=== PATIENT | male | born 1975 | race Caucasian/White ===

== ENCOUNTER 2018-08-24 02:55 | Emergency (ER) | payer MEDICAID ==
[~2018-08-24] VITALS: Wt 81.9 kg
[2018-08-24 02:58] VITALS: BP 195/87; PULSE 101; RESP 18
[2018-08-24] MEDS ORDERED: CLOT30CR24 TOP (03:37)
[2018-08-24] MEDS ORDERED: HC30CR25 TOP (03:55)
--- NOTE | 2018-08-24 04:02 | ERD ---
ER Documentation Chief Complaint Chief Complaint BILAT FOOT PAIN/ "BURNING" X'S 2 DAYS HPI 43-year-old male presenting with bilateral foot pain and burning sensation x2 days. Patient is currently homeless and is walking frequently. He states he has some pain to the bottom of his feet. He has had no numbness or tingling. Denies other medical problems. Has not use any medications on the area. NKDA. Surgical history denies. Social history denies ROS All systems reviewed and are negative except as per history of present illness. Medications Home Meds Active Scripts Hydrocortisone* Topical (Hydrocortisone* Topical) 2.5%-28.3 Gm Cream..g., 1 APPLIC TOP BID, #1 TUB Prov:NATHALY MAGUIRE PA-C 08/24/18 Clotrimazole* (Clotrimazole* AF) 1% - 30 Gm Cream.gm., 1 APPLIC TOP BID for 7 Days, TUB Prov:NATHALY MAGUIRE PA-C 08/24/18 PMhx/Soc Medical and Surgical Hx: pt denies Medical Hx, pt denies Surgical Hx Hx Alcohol Use: Yes Hx Substance Use: No Hx Tobacco Use: Yes Smoking Status: Current some day smoker FmHx Family History: No diabetes, No coronary disease, No other Physical Exam Vitals Vital Signs Date Temp Pulse Resp B/P (MAP) Pulse Ox O2 O2 Flow FiO2 Time Delivery Rate 08/24/18 97.6 101 18 195/87 100 02:58 (123) Physical Exam GENERAL: The patient is well-appearing, well-nourished, in no acute distress CHEST: Clear to auscultation bilaterally. There are no rales, wheezes or rhonchi. HEART: Regular rate and rhythm. No murmurs, clicks, rubs or gallops. EXTREMITIES: Equal pulses bilaterally. There is no peripheral clubbing, cyanosis or edema. No focal swelling or erythema. Full range of motion. Grossly neurovascularly intact. NEUROLOGIC: Alert and oriented. Cranial nerves II through XII intact. Motor strength in all 4 extremities with 5 out of 5 strength. Sensation grossly intact. SKIN: Erythema noted to the bottom of the feet with no excoriations or lacerations. No sores or pustules. No skin breaks Procedures/MDM MDM: 43-year-old male presenting with irritation upon his feet. I recommended p atient to refrain from excessive walking however patient is adamant that there is a medication to be used to help his symptoms. He does not believe this is associated with walking. I have low suspicion for infectious etiology. I have low suspicion for viral syndrome. Patient is discharged with strict ER precautions and told to follow-up with primary care within 1 to 2 days for close evaluation. All questions answered at discharge Departure Diagnosis: Primary Impression: Athletes foot Condition: Stable Patient Instructions: Athlete'S Foot Referrals: [facility] YOU HAVE RECEIVED A MEDICAL SCREENING EXAM AND THE RESULTS INDICATE THAT YOU DO NOT HAVE A CONDITION THAT REQUIRES URGENT TREATMENT IN THE EMERGENCY DEPARTMENT. FURTHER EVALUATION AND TREATMENT OF YOUR CONDITION CAN WAIT UNTIL YOU ARE SEEN IN YOUR DOCTORS OFFICE WITHIN THE NEXT 1-2 DAYS. IT IS YOUR RESPONSIBILITY TO MAKE AN APPOINTMENT FOR FOLOW-UP CARE. IF YOU HAVE A PRIMARY DOCTOR --you should call your primary doctor and schedule an appointment IF YOU DO NOT HAVE A PRIMARY DOCTOR YOU CAN CALL OUR PHYSICIAN REFERRAL HOTLINE AT IF YOU CAN NOT AFFORD TO SEE A PHYSICIAN YOU CAN CHOSE FROM THE FOLLOWING [facility] [address] [facility]. [facility] [address] [facility] [facility] [address] [facility] [facility] [address] [facility]. [facility] [address] [facility]. [facility]. [address] Additional Instructions: FOLLOW UP WITH YOUR PRIMARY CARE PHYSICIAN TOMORROW.Return to this facility if you are not improving as expected. NATHALY MAGUIRE PA-C Aug 24, 2018 04:02
== END 2018-08-24 04:04 | disposition left against medical advice (07) ==
LOC: FTE 02:55
DX: B35.3 Tinea pedis (principal); F17.210 Nicotine dependence, cigarettes, uncomplicated
CPT/HCPCS: 99282

== ENCOUNTER 2018-09-10 20:30 | Emergency (ER) | payer MEDICAID ==
[~2018-09-10] VITALS: Ht 175.3 cm; Wt 84.9 kg
[~2018-09-10 20:30] MED LIST: CLOT30CR24 TOP; HC30CR25 TOP
[2018-09-10 20:59] VITALS: Ht 175.3 cm; Wt 84.9 kg
[2018-09-10] MEDS ORDERED: morphine 4 MG/ML VIAL IV STA (23:46)
[2018-09-10] MEDS ORDERED: ONDANSETRON 4 MG INJ IV STA (23:46)
[2018-09-11] MEDS ORDERED: TRAM50TA2 PO (01:21)
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
[2018-09-11 01:30] VITALS: BP 125/77; PULSE 68; RESP 16
== END 2018-09-11 01:33 | disposition home or self-care (01) ==
LOC: E/R 20:30
DX: R10.13 Epigastric pain (principal); Z87.891 Personal history of nicotine dependence
CPT/HCPCS: 36415; 71045; 74176; 80053; 83690; 85025; 96374; 96375; J2270; J2405; Z7502

== ENCOUNTER 2018-10-21 01:00 | Emergency (ER) | payer MEDICAID ==
[~2018-10-21] VITALS: Ht 172.7 cm; Wt 82.5 kg
[~2018-10-21 01:00] MED LIST changes: +TRAM50TA2 PO
[2018-10-21 01:03] VITALS: Ht 172.7 cm; Wt 82.5 kg
[2018-10-21] MEDS ORDERED: LIDOCAINE/MYLANTA 40 ML BTL PO STA (01:40)
[2018-10-21] MEDS ORDERED: BELLADONNA/PHENOBARBITAL TAB PO STA (01:40)
[2018-10-21] MEDS ORDERED: TRAM50TA2 PO (02:51)
[2018-10-21] MEDS ORDERED: OMEP40CA6 PO (02:51)
--- NOTE | 2018-10-21 02:55 | ERD ---
ER Documentation Chief Complaint Chief Complaint pt has hx of gallsones and ate chile, c/o burning pain HPI This is a 43-year-old male with a history of chronic gastritis he ran out of his omeprazole the past couple weeks and says is been off of his diet and eating spicy foods again, is complaining of epigastric burning today. He has no melena no vomiting no weakness no chest pain or shortness of breath. He says epigastric burning is exactly like prior gastritis episodes ROS All systems reviewed and are negative except as per history of present illness. Medications Home Meds Active Scripts Tramadol HCl (Tramadol HCl) 50 Mg Tablet, 50 MG PO Q6, #20 TAB Prov:JORGE WRIGHT DO 10/21/18 Omeprazole* (Omeprazole*) 40 Mg Capsule.dr, 40 MG PO DAILY, #30 CAP Prov:MONICO WRIGHTSTKONSTANTINS A. DO 10/21/18 Tramadol HCl (Tramadol HCl) 50 Mg Tablet, 50 MG PO Q4 PRN for PAIN, #20 TAB Prov:LEXIE BOYLE 09/11/18 Hydrocortisone* Topical (Hydrocortisone* Topical) 2.5%-28.3 Gm Cream..g., 1 APPLIC TOP BID, #1 TUB Prov:NATHALY MAGUIRE PA-C 08/24/18 Clotrimazole* (Clotrimazole* AF) 1% - 30 Gm Cream.gm., 1 APPLIC TOP BID for 7 Days, TUB Prov:NATHALY MAGUIRE PA-C 08/24/18 Allergies Allergies: Coded Allergies: No Known Allergy (Unverified , 09/10/18) PMhx/Soc Medical and Surgical Hx: pt denies Surgical Hx Hx Cardiac Disorders: Yes Hx Alcohol Use: Yes Hx Substance Use: No Hx Tobacco Use: Yes Smoking Status: Never smoker FmHx Family History: No coronary disease Physical Exam Vitals Vital Signs Date Temp Pulse Resp B/P (MAP) Pulse Ox O2 O2 Flow FiO2 Time Delivery Rate 10/21/18 98.9 72 16 165/87 100 Room Air 01:08 (113) 10/21/18 98.9 82 16 180/75 100 01:03 (110) Physical Exam Const: Well-developed, well-nourished Head: Atraumatic, normocephalic Eyes: Normal Conjunctiva, PERRLA, EOMI, normal sclera, no nystagmus ENT: Normal External Ears, Nose and Mouth, moist mucus membranes. Neck: Full range of motion. No meningismus, no lymphadenopathy. Resp: Clear to auscultation bilaterally, no wheezing, rhonchi, rales Cardio: Regular rate and rhythm, no murmurs, S1 S2 present Abd: Soft, mild epigastric tenderness, non distended. Normal bowel sounds, no guarding or rebound, no pulsitile abdominal masses or bruits Skin: No petechiae or rashes, no ecchymosis , no maculopapular rash Back: No midline or flank tenderness Ext: No cyanosis, or edema, FROM x 4, normal inspection, neurovascularly intact x 4 Neur: Awake and alert, STR 5/5 x 4, sensation intact x 4, no focal findings, cerebellum intact Psych: Normal Mood and Affect Const: No acute distress Head: Atraumatic Eyes: Normal Conjunctiva ENT: Normal External Ears, Nose and Mouth. Neck: Full range of motion. No meningismus. Resp: Clear to auscultation bilaterally Cardio: Regular rate and rhythm, no murmurs Abd: Soft, non tender, non distended. Normal bowel sounds Skin: No petechiae or rashes Back: No midline or flank tenderness Ext: No cyanosis, or edema Neur: Awake and alert Psych: Normal Mood and Affect Results 24 hrs Current Medications Medications Dose Sig/Kiki Start Time Status Last (Trade) Ordered Route PRN Stop Time Admin Dose Reason Admin 40 ml ONCE STAT 10/21/18 DC 10/21/18 Miscellaneous PO 01:40 01:45 Medication 10/21/18 01:41 (Gi Cocktail (2)) Belladonna/ 2 tab ONCE STAT 10/21/18 DC 10/21/18 Phenobarbital PO 01:40 01:44 () 10/21/18 01:41 Procedures/MDM Patient received a GI cocktail and says his pain is resolved. Departure Diagnosis: Primary Impression: Gastritis Gastritis type: unspecified gastritis Chronicity: chronic Gastritis bleeding: presence of bleeding unspecified Qualified Codes: K29.50 - Unspecified chronic gastritis without bleeding Condition: Stable Patient Instructions: Gastritis Vs. Ulcer JORGE WRIGHT DO Oct 21, 2018 02:55
[2018-10-21 02:57] VITALS: BP 146/87; PULSE 80; RESP 16
== END 2018-10-21 02:59 | disposition home or self-care (01) ==
LOC: E/R 01:00
DX: K29.50 Unspecified chronic gastritis without bleeding (principal); Z87.891 Personal history of nicotine dependence
CPT/HCPCS: Z7502; Z7610; 99283

== ENCOUNTER 2018-10-22 14:04 | Emergency (ER) | payer MEDICAID ==
[~2018-10-22] VITALS: Ht 175.3 cm; Wt 81.1 kg
[~2018-10-22 14:04] MED LIST changes: +OMEP40CA6 PO
[2018-10-22 14:09] VITALS: Ht 175.3 cm; Wt 81.1 kg
--- NOTE | 2018-10-22 14:28 | ERD ---
ER Documentation Chief Complaint Chief Complaint abdominal pain and nausea x 1 hour [employer] HPI The patient is a 43-year-old male, presenting to the ER because of epigastric abdominal discomfort 1 hour after he drank some unknown liquid; he refused to elaborate on the unknown liquid to me. He complains of anxious, had similar symptoms previously, was seen in the ER yesterday for epigastric abdominal pain, treated with GI cocktail with good response. He denies auditory/visual hallucination, homicidal/suicidal ideation, headache, neck pain, chest pain, dyspnea, abdominal pain, vomiting, dysuria, diarrhea. He smokes, denies drink ing, denies illicit drug Medical history: Gastritis Past surgical history: None ROS All systems reviewed and are negative except as per history of present illness. Medications Home Meds Discontinued Scripts Tramadol HCl (Tramadol HCl) 50 Mg Tablet, 50 MG PO Q6, #20 TAB Prov:JORGE WRIGHT DO 10/21/18 Omeprazole* (Omeprazole*) 40 Mg Capsule.dr, 40 MG PO DAILY, #30 CAP Prov:JORGE WRIGHT DO 10/21/18 Tramadol HCl (Tramadol HCl) 50 Mg Tablet, 50 MG PO Q4 PRN for PAIN, #20 TAB Prov:LEXIE BOYLE 09/11/18 Hydrocortisone* Topical (Hydrocortisone* Topical) 2.5%-28.3 Gm Cream..g., 1 APPLIC TOP BID, #1 TUB Prov:NATHALY MAGUIRE PA-C 08/24/18 Clotrimazole* (Clotrimazole* AF) 1% - 30 Gm Cream.gm., 1 APPLIC TOP BID for 7 Days, TUB Prov:NATHALY MAGUIRE PA-C 08/24/18 Allergies Allergies: Coded Allergies: No Known Allergy (Unverified , 10/22/18) PMhx/Soc Hx Cardiac Disorders: Yes Hx Alcohol Use: Yes Hx Substance Use: No Hx Tobacco Use: Yes Physical Exam Vitals Vital Signs Date Temp Pulse Resp B/P (MAP) Pulse Ox O2 O2 Flow FiO2 Time Delivery Rate 10/22/18 97 20 140/99 100 Room Air 16:15 (113) 10/22/18 98.4 110 18 172/90 98 14:09 (117) Physical Exam Const: No acute distress. Head: Atraumatic. Eyes: Normal Conjunctiva. ENT: Normal External Ears, Nose and Mouth. Neck: Full range of motion. No meningismus. Resp: Clear to auscultation bilaterally. Cardio: Regular rate and rhythm. Abd: Soft, non distended, normal bowel sounds, non tender. Skin: No petechiae or rashes. Back: No midline or flank tenderness. Ext: No cyanosis, or edema. Neur: Awake and alert. No focal deficit Psych: Anxious Result Diagram: 10/22/18 1448 10/22/18 1448 Results 24 hrs Laboratory Tests Test 10/22/18 14:48 White Blood Count 14.1 10^3/ul Red Blood Count 4.92 10^6/ul Hemoglobin 14.8 g/dl Hematocrit 43.8 % Mean Corpuscular Volume 89.0 fl Mean Corpuscular Hemoglobin 30.1 pg Mean Corpuscular Hemoglobin Concent 33.8 g/dl Red Cell Distribution Width 12.9 % Platelet Count 481 10^3/UL Mean Platelet Volume 8.8 fl Immature Granulocytes % 0.400 % Neutrophils % 68.0 % Lymphocytes % 22.4 % Monocytes % 7.4 % Eosinophils % 1.2 % Basophils % 0.6 % Nucleated Red Blood Cells % 0.0 /100WBC Immature Granulocytes # 0.050 10^3/ul Neutrophils # 9.6 10^3/ul Lymphocytes # 3.2 10^3/ul Monocytes # 1.0 10^3/ul Eosinophils # 0.2 10^3/ul Basophils # 0.1 10^3/ul Nucleated Red Blood Cells # 0.0 10^3/ul Sodium Level 139 mmol/L Potassium Level 4.1 mmol/L Chloride Level 105 mmol/L Carbon Dioxide Level 25 mmol/L Anion Gap 9 Blood Urea Nitrogen 26 mg/dl Creatinine 0.84 mg/dl Est Glomerular Filtrat Rate mL/min > 60 mL/min Glucose Level 156 mg/dl Calcium Level 8.9 mg/dl Total Bilirubin 0.5 mg/dl Direct Bilirubin 0.00 mg/dl Indirect Bilirubin 0.5 mg/dl Aspartate Amino Transf (AST/SGOT) 21 IU/L Alanine Aminotransferase (ALT/SGPT) 22 IU/L Alkaline Phosphatase 63 IU/L Total Protein 6.8 g/dl Albumin 3.8 g/dl Globulin 3.00 g/dl Albumin/Globulin Ratio 1.26 Lipase 77 U/L Urine Opiates Screen Negative Urine Barbiturates Positive Urine Amphetamines Screen Positive Urine Benzodiazepines Screen Negative Urine Cocaine Screen Negative Urine Cannabinoids Negative Ethyl Alcohol Level < 10.0 mg/dl Current Medications Medications Dose Sig/Kiki Start Time Status Last (Trade) Ordered Route PRN Stop Time Admin Dose Reason Admin 40 ml ONCE ONCE 10/22/18 DC 10/22/18 Miscellaneous PO 15:00 15:01 Medication 10/22/18 15:01 (Gi Cocktail (2)) Procedures/MDM EKG: Read by emergency physician Rate/Rhythm: Normal Sinus Rhythm 88 beats/min QRS, ST, T-waves: No ST elevation, no T inversion, RWA Impression: Abnormal EKG MEDICAL MAKING DECISION: The patient is a 43-year-old male, presenting with acute anxiety, most likely due to acute amphetamine abuse. He was treated with gastrointestinal cocktail with good response, is stable for outpatient follow-up The differential diagnoses considered include but are not limited to cholelithiasis, cholecystitis, choledocholithiasis, cholangitis, pancreatitis, hepatitis, gastritis, peptic ulcer disease, gastric ulcer, appendicitis, cystitis, diverticulitis, partial small bowel obstruction. Departure Diagnosis: Primary Impression: Amphetamine abuse Condition: Good Comments The patient's blood pressure was elevated (>120/80) but appears stable without evidence of hypertension emergency or urgency. The patient was counseled about the risks of hypertension and urged to pursue outpatient monitoring and therapy within a week with their primary care physician. I discussed the findings with the patient. I advised the patient to follow-up with the primary physician in about 1-2 days, sooner if needed and return if any concern. Disclaimer: Inadvertent spelling and grammatical errors are likely due to [employer]/dictation software use and do not reflect on the overall quality of patient care. Also, please note that the electronic time recorded on this note does not necessarily reflect the actual time of the patient encounter. JAZMIN LILLY MD Oct 22, 2018 14:28
[2018-10-22] MEDS ORDERED: LIDOCAINE/MYLANTA 40 ML BTL PO ONE (15:00)
[2018-10-22 16:15] VITALS: BP 140/99; PULSE 97; RESP 20
== END 2018-10-22 16:16 | disposition home or self-care (01) ==
LOC: E/R 14:04
DX: F15.10 Other stimulant abuse, uncomplicated (principal); Z87.891 Personal history of nicotine dependence
CPT/HCPCS: 36415; 80053; 80307; 83690; 85025; 93005; Z7502; Z7610